=== PATIENT | female | born 1975 | race Hispanic/Latino ===

== ENCOUNTER 2017-10-05 10:33 | Inpatient (IN) | payer MEDICAID, OTHER, SELFPAY ==
[2017-10-05] MEDS ORDERED: Ibuprofen 200 MG TAB ONE (11:36)
[2017-10-05 12:03] LABS: Hemoglobin 14.1 g/dL (12.0-16.0); Mean Corpuscular Hemoglobin 30.9 pg (27.0-31.0); Mean Corpuscular Volume 90.7 fl (81.0-99.0); Platelet Count 232 thou/uL (130-400); RBC Distribution Width 11.9 % (11.5-14.5); Red Blood Cell (RBC) Count 4.57 mill/uL (4.20-5.40); White Blood Cell (WBC) Count 24.9 thou/uL (4.8-10.8)
[2017-10-05 12:13] LABS: Bilirubin Negative (Negative); Blood, Urine Large (Negative); Clarity CLOUDY (Clear); Glucose, Urine (Dipstick) Negative (Negative); Leukocyte Moderate (Negative); Nitrite Negative (Negative); Protein, Urine (Dipstick) 30 mg/dL (Neg-Trace); Specific Gravity, Urine 1.017 (1.002-1.036)
[2017-10-05 12:14] LABS: Bacteria/HPF 1+ HPF (None Seen); Hyaline Casts/LPF 4-6 HYALINE CAST LPF (0-3 Hyaline); Pathc Cast-AUWi Flag 0.81 (0-2.49); RBC/HPF GREATER THAN 50-TNTC HPF (0-3); WBC/HPF 21-50 HPF (0-3)
[2017-10-05 12:21] LABS: Band 19 % (5-11); Lymphocytes 4 % (21-51); MDiff Complete? YES; Monocytes 2 % (0-10); Neutrophil 75 % (42-75); RBC Morphology Normal
[2017-10-05 12:26] LABS: ALT (SGPT) 44 U/L (8-55); AST (SGOT) 38 U/L (5-34); Albumin 4.4 g/dL (3.5-5.0); Alkaline Phosphatase 73 U/L (40-150); Anion Gap 15 mmol/L (10-20); BUN (Urea Nitrogen) 11 mg/dL (7.0-18.7); Bilirubin, Total 1.4 mg/dL (0.2-1.2); Calc. Creatinine Clearance 0 mL/min (70-130); Calcium 9.4 mg/dL (7.8-10.44); Carbon Dioxide 20 mmol/L (22-29); Chloride 105 mmol/L (98-107); Estimated GFR-MDRD 79; Globulin 3.9 g/dL (2.4-3.5); Glucose 133 mg/dL (70-105); Lipase 13 U/L (8-78); Potassium 3.9 mmol/L (3.5-5.1); Protein, Total 8.3 g/dL (6.0-8.3); Sodium 136 mmol/L (136-145)
[2017-10-05 12:27] LABS: BHCG - Serum Negative (NEGATIVE); Pregs Control Background? CLEAR/WHITE (CLR/WHITE); Pregs Control Bar Appear? YES (CONTROL BAR)
[2017-10-05] MEDS ORDERED: Piperacillin/Tazobactam 4.5 GM in Sodium Chloride 0.9% 100 ML IVPB SCH (13:00)
--- NOTE | 2017-10-05 13:44 | CT ---
CT ABDOMEN AND PELVIS WITH IV CONTRAST: Date: 10-05-17 History: Abdominal pain since last night with associated nausea. Comparison: None available. FINDINGS: There is atelectasis present at each lung base. The liver, spleen, pancreas, bilateral adrenal glands, abdominal aorta and right kidney demonstrate a normal CT appearance. There is a nonobstructing 8 mm calculus in the inferior pole left kidney. The urinary bladder is incompletely distended and not well evaluated. The uterus and left adnexal str uctures have a normal CT appearance. There is a low density structure in the region of the right ovar y which may represent a right ovarian cyst. Small amount of free fluid is seen in the cul-de-sac. There are fluid filled loops of small bowel as well as fluid within the ascending colon. The appendix is visualized and is normal in diameter. No fluid collection or lymphadenopathy is seen in the abdom en or pelvis. Osseous structures appear intact. IMPRESSION: 1. Nonobstructing inferior pole left renal calculus. 2. Small amount of free fluid in the pelvis with associated adjacent linear densities which may also be related to fluid adjacent to the sigmoid colon as opposed to inflammatory changes. Small diverticu lum is present in the sigmoid colon at this level, but there is no bowel wall thickening seen. While early diverticulitis cannot be entirely excluded, these findings are thought to be related to small a mount of free fluid in the pelvis. 3. Low density structure within the right ovary probably related to ovarian cyst. 4. No CT evidence of appendicitis. 5. Nonspecific fluid filled loops of small bowel and ascending colon. No dilated loops of bowel are v isualized. POS: DAVID
[2017-10-05 16:04] LABS: Lactic Acid 1.8 mmol/L (0.5-2.2)
[2017-10-05] MEDS ORDERED: Ondansetron ODT 4 MG TAB SL PRN (16:38)
[2017-10-05] MEDS ORDERED: Ondansetron PF 4 MG/2 ML Vial IVP PRN ×2 (16:38→16:41)
[2017-10-05] MEDS ORDERED: Acetaminophen 325 MG TAB PO PRN (16:38)
[2017-10-05] MEDS ORDERED: Enoxaparin Sodium 40 MG/0.4 ML SYRINGE SC SCH (16:41)
[2017-10-05] MEDS ORDERED: HYDROcodone/Acetaminophen 5/325 mg Tablet PO PRN (16:41)
[2017-10-05] MEDS ORDERED: HYDROcodone/Acetaminophen 10/325 mg Tablet PO PRN (16:41)
[2017-10-05] MEDS ORDERED: Ondansetron ODT 4 MG TAB PO PRN (16:41)
[2017-10-05 17:00] VITALS: BMI 28.3
[2017-10-05] MEDS: Sodium Chloride 0.9% 1,000 ML IV SCH (17:38)
[2017-10-05] MEDS: metroNIDAZOLE 500 MG in Premix Bag 1 BAG IVPB SCH ×2 (17:41→23:56)
[2017-10-05] MEDS: Famotidine 20 MG TAB PO SCH (20:28)
[2017-10-06] MEDS ORDERED: Sodium Chloride 0.9% 1,000 ML IV SCH (00:15)
[2017-10-06] MEDS ORDERED: cefTRIAXone\\ROCEPHIN 2 GM in Sodium Chloride 0.9% 100 ML IVPB SCH (00:15)
[2017-10-06] MEDS: Acetaminophen 325 MG TAB PO PRN ×3 (00:19→23:03)
[2017-10-06] MEDS: Sodium Chloride 0.9% 1,000 ML IV SCH ×3 (03:05→17:14)
[2017-10-06 05:26] LABS: Anion Gap 7 mmol/L (10-20); BUN (Urea Nitrogen) 9 mg/dL (7.0-18.7); Calc. Creatinine Clearance 123 mL/min (70-130); Calcium 7.4 mg/dL (7.8-10.44); Carbon Dioxide 19 mmol/L (22-29); Chloride 114 mmol/L (98-107); Estimated GFR-MDRD Greater than 90; Glucose 104 mg/dL (70-105); Potassium 3.2 mmol/L (3.5-5.1); Sodium 137 mmol/L (136-145)
[2017-10-06] MEDS: metroNIDAZOLE 500 MG in Premix Bag 1 BAG IVPB SCH ×4 (05:41→23:04)
[2017-10-06 05:44] LABS: Band 28 % (5-11); Hemoglobin 10.1 g/dL (12.0-16.0); Lymphocytes 3 % (21-51); MDiff Complete? YES; Mean Corpuscular HGB CONC 33.1 g/dL (32.0-36.0); Mean Corpuscular Hemoglobin 30.9 pg (27.0-31.0); Mean Corpuscular Volume 93.1 fl (81.0-99.0); Mean Platelet Volume 7.6 fL (7.4-10.4); Metamyelocyte 1 % (0-0); Monocytes 2 % (0-10); Neutrophil 66 % (42-75); PLT Morphology Comment Appears Adequate; Platelet Count 170 thou/uL (130-400); RBC Distribution Width 11.9 % (11.5-14.5); RBC Morphology Normal; Red Blood Cell (RBC) Count 3.27 mill/uL (4.20-5.40); White Blood Cell (WBC) Count 16.7 thou/uL (4.8-10.8)
[2017-10-06] MEDS: Enoxaparin Sodium 40 MG/0.4 ML SYRINGE SC SCH (08:37)
[2017-10-06] MEDS: Famotidine 20 MG TAB PO SCH ×2 (08:37→20:22)
[2017-10-06] MEDS ORDERED: FLU VACC QS2017-18 36 mo. & older 0.5 ML SYRINGE IM ONE (09:00)
--- NOTE | 2017-10-06 14:29 | PDOC.PN ---
- Subjective Encounter Start Date: 10/06/17 Encounter Start Time: 15:00 pt feeling better, but still with occasional nasuea, maybe related to flagyl. HR still up, but ksenia,r BP stable, no nV at present, no D/C, no CP, no SOB, no further fevers WBC improved, but still abnormal. 10 point ROS performed and neg for all systems except as per hPI - Objective Resuscitation Status: Resuscitation Status FULL:Full Resuscitation MAR Reviewed: Yes Vital Signs & Weight: Vital Signs (12 hours) Temp Pulse Resp BP Pulse Ox 10/06/17 08:45 98.4 F 108 H 18 10/06/17 08:00 98.5 F 116 H 18 93/54 L 96 10/06/17 04:44 98.4 F 108 H 18 95/57 L 98 Weight Weight 145 lb 1.027 oz Result Diagrams: 10/07/17 08:39 10/07/17 08:39 Radiology Reviewed by me: Yes Phys Exam - Physical Examination Constitutional: NAD HEENT: PERRLA, moist MMs, sclera anicteric, oral pharynx no lesions Neck: no nodes, no JVD, supple, full ROM Respiratory: no wheezing, no rales, no rhonchi, clear to auscultation bilateral Cardiovascular: RRR, no significant murmur, no rub Gastrointestinal: soft, non-tender, no distention, positive bowel sounds Musculoskeletal: no edema, pulses present Neurological: non-focal, normal sensation, moves all 4 limbs Lymphatic: no nodes Psychiatric: normal affect, A&O x 3 Skin: no rash, normal turgor, cap refill <2 seconds Dx/Plan (1) Colitis Code(s): K52.9 - NONINFECTIVE GASTROENTERITIS AND COLITIS, UNSPECIFIED Status : Acute Comment: on cipro and flagyl, improved but not ready for discharg,e will continue current management tonight (2) Sepsis Code(s): A41.9 - SEPSIS, UNSPECIFIED ORGANISM Status: Acute Qualifiers: Sepsis type: sepsis due to unspecified organism Qualified Code(s): A41.9 - Sepsis, unspecified organism Comment: suspect GNR due to source being GI. BCx neg, UCx neg to date (3) UTI (urinary tract infection) Status: Acute Qualifiers: Urinary tract infection type: acute cystitis Hematuria presence: with hematuria Qualified Code(s): N30.01 - Acute cystitis with hematuria Comment: no urinary symptoms, follow up on culture, on Cipro (4) Renal stone Status: Chronic Comment: non-obstructing - Plan cont current plan of care, continue antibiotics, out of bed/ambulate, DVT proph w/lovenox * .
--- NOTE | 2017-10-06 17:13 | HP ---
DATE OF ADMISSION: 10/05/2017 TIME OF SERVICE: 1520. PRIMARY CARE PHYSICIAN: [facility] in [place]. CHIEF COMPLAINT: Abdominal pain, nausea. HISTORY OF PRESENT ILLNESS: Ms. Posadas is a 42-year-old Latin-[place] female with no past medical history, who developed abdominal pain about 24 hours prior to presentation. It is located in the bi lateral upper quadrants. It was associated with some nausea and vomiting x1, but none today. She de nies any fevers or chills, no chest pain or difficulty breathing. She denies any undercooked or abno rmal tasting foods. No sick contacts. She presented to the emergency department for evaluation wher e she was noted to have a white blood cell count of 24.9 with a left shift and 19% bands. Her lactic acid was normal, but her heart rate was 126 and was febrile at 102.9. She met sepsis criteria, so w kapil subsequently called for admit. Currently, she is feeling well. She was smiling upon my arrival to the room. She does complain of s ome abdominal pain that is constant. No cramping and currently no nausea or vomiting. PAST MEDICAL HISTORY: None. PAST SURGICAL HISTORY: None. HOME MEDICATIONS: None. ALLERGIES: None. FAMILY HISTORY: Negative for clotting or bleeding disorder, no immune dysfunction, no premature aaron nary artery disease. SOCIAL HISTORY: Negative for habits x3. She is . REVIEW OF SYSTEMS: A 10-point review of systems was attempted. The patient denied any other problem s, though I am unsure due to my inadequate Nepali. PHYSICAL EXAMINATION: VITAL SIGNS: Temperature 99.4, T-max in the ER is 102.9, pulse 126, blood pressure is 115/68, respir atory rate 25, satting 98% on room air. GENERAL: She is awake. She is alert and she is oriented x3, well-developed, well-nourished Latin-Am erican female, who appears to be in no acute distress. HEENT: Normocephalic, atraumatic. Pupils are equal, round, and react to light bilaterally. Mucous membranes are moist. She has no visible lesions. No thrush. NECK: Supple, without lymphadenopathy, JVD, or thyromegaly. She has normal carotid upstrokes withou t bruits. LUNGS: Clear. She has no wheezing, no rales or rhonchi. She has good air movement. Symmetrical ch est excursion. No prolonged expiratory phase. CARDIOVASCULAR: She is tachycardic, but regular. Normal S1, S2. I do not appreciate murmurs. ABDOMEN: Soft and it is diffusely tender in the bilateral upper quadrants. She has no rebound, rigi dity or guarding. She has got normoactive bowel sounds present in all four quadrants. EXTREMITIES: No cyanosis, no clubbing, no edema. SKIN: Warm, moist and well perfused. She has no rashes, no lesions. She has 2+ dorsalis pedis and posterior tibial pulses bilaterally. MUSCULOSKELETAL: Normal to inspection. Large joints appear uninflamed. There are no palpable effus ions and good range of motion. NEUROLOGIC: Cranial nerves II through XII are grossly intact. She has a normal speech pattern, she has a 5/5 strength in all four extremities. She has no focal deficits. LABORATORY DATA: Sodium is 136, potassium 3.9, chloride 105, bicarbonate 20, BUN 11, creatinine 0.80 , glucose 133, and calcium 9.4. Liver functions were normal. CBC showed a white count of 24.9, 75% granulocytes, 19% bands, hemoglobin is 14.1, hematocrit is 41.5 , and platelet count is 232,000. IMAGING: CT scan of the abdomen and pelvis showed left nonobstructing renal calculus and possible ea rly diverticulitis with some small amount of free fluid and some linear densities. ASSESSMENT AND PLAN: 1. Colitis: The patient certainly has clinical colitis. She has not had any diarrhea, but does hav e bilateral upper quadrant tenderness. I will place her on Cipro and Flagyl tonight and watch. Urin alysis did have 4 to 6 squamous epithelial cells, some white blood cells, but negative nitrite and mo derate leukocyte esterase. We will follow up on the urine culture. ER doctor reported tenderness to the bilateral flanks, though I was not able to elicit on my exam. I do not think she has pyelonephr itis. 2. Sepsis: The patient does meet sepsis criteria. She did get 30 mL per kilo, we will give another liter of IV fluids now and placed on 125 mL per hour overnight. Recheck her vitals in the morning. 3. Urinary tract infection, the patient has no symptoms of dysuria, hematuria or frequency. Urinaly sis is abnormal. She will be on antibiotics for her abdominal infection. I will follow up on the lture results.
[2017-10-07] MEDS: Sodium Chloride 0.9% 1,000 ML IV SCH (02:23)
[2017-10-07] MEDS: metroNIDAZOLE 500 MG in Premix Bag 1 BAG IVPB SCH (06:08)
[2017-10-07 08:58] LABS: #Basophils 0.1 thou/uL (0.0-0.2); #Eosinphils 0.1 thou/uL (0.0-0.7); #Lymphocytes 0.9 thou/uL (1.20-3.40); #Monocytes 0.5 thou/uL (0.11-0.59); #Neutrophils 7.7 thou/uL (1.40-6.50); %Basophils 0.6 % (0.0-1.0); %Eosinophils 0.8 % (0.0-10.0); %Lymphocytes 9.5 % (21.0-51.0); %Monocytes 5.4 % (0.0-10.0); %Neutrophils 83.7 % (42.0-75.0); Hemoglobin 10.1 g/dL (12.0-16.0); Mean Corpuscular HGB CONC 33.4 g/dL (32.0-36.0); Mean Corpuscular Hemoglobin 30.3 pg (27.0-31.0); Mean Corpuscular Volume 90.7 fl (81.0-99.0); Platelet Count 180 thou/uL (130-400); RBC Distribution Width 11.8 % (11.5-14.5); Red Blood Cell (RBC) Count 3.33 mill/uL (4.20-5.40); White Blood Cell (WBC) Count 9.2 thou/uL (4.8-10.8)
[2017-10-07] MEDS: Enoxaparin Sodium 40 MG/0.4 ML SYRINGE SC SCH (09:02)
[2017-10-07] MEDS: Famotidine 20 MG TAB PO SCH (09:04)
[2017-10-07 09:34] LABS: ALT (SGPT) 23 U/L (8-55); AST (SGOT) 18 U/L (5-34); Albumin 3.1 g/dL (3.5-5.0); Alkaline Phosphatase 56 U/L (40-150); Anion Gap 9 mmol/L (10-20); BUN (Urea Nitrogen) 6 mg/dL (7.0-18.7); Bilirubin, Total 0.3 mg/dL (0.2-1.2); Calc. Creatinine Clearance 125 mL/min (70-130); Calcium 8.3 mg/dL (7.8-10.44); Carbon Dioxide 19 mmol/L (22-29); Chloride 116 mmol/L (98-107); Estimated GFR-MDRD Greater than 90; Globulin 2.7 g/dL (2.4-3.5); Glucose 100 mg/dL (70-105); Magnesium 1.8 mg/dL (1.6-2.6); Potassium 2.8 mmol/L (3.5-5.1); Protein, Total 5.8 g/dL (6.0-8.3); Sodium 141 mmol/L (136-145)
[2017-10-07] MEDS: Potassium Chloride 20 MEQ TAB PO SCH ×2 (11:35→14:58)
[2017-10-07] MEDS: Acetaminophen 325 MG TAB PO PRN (14:58)
[2017-10-07] MEDS ORDERED: metroNIDAZOLE 500 MG TAB PO SCH (15:00)
[2017-10-07] MEDS ORDERED: Ciprofloxacin 500 MG TAB PO SCH (15:00)
[2017-10-07 16:09] VITALS: BP 116/74; TEMP 98.9
[2017-10-08] MEDS ORDERED: Ciprofloxacin 500 MG TAB PO SCH ×2 (06:00→20:00)
--- NOTE | 2017-10-08 13:56 | DIS ---
DATE OF ADMISSION: 10/05/2017 DATE OF DISCHARGE: 10/07/2017 PRIMARY CARE PHYSICIAN: [facility]. DISCHARGE DIAGNOSES: Abdominal pain and nausea. HISTORY OF PRESENT ILLNESS: Ms. Posadas is a 42-year-old Latin-Australian female with no past medical history, who came with about 24 hours of abdominal pain prior to admission. She was seen and evaluated in the emergency department with a negative urinalysis and met sepsis criteria. She was given IV fluids. We were called for admission. HOSPITAL COURSE: The patient was seen and examined by me in the emergency department. Clinically, she had a colitis, was started on Cipro and Flagyl, and was watched overnight. She had no other signs of pyelonephritis. Overnight, 10/05/2017-10/06/2017, the patient was feeling better with occasional nausea that seemed to be temporally related to the Flagyl. Her heart rate was still up, but blood pressure was better. She had no nausea and vomiting and no further fevers. White blood cell count was improved, down in the not quite normal. She was continued on antibiotics overnight. On the day of discharge, white blood cell count normalized. Nausea and vomiting, resolved. Abdominal pain had all but resolved, and she is stable for outpatient followup. PHYSICAL EXAMINATION: The patient was seen and examined on the day of discharge. Discharge plan and disposition were discussed with the patient [id number] at the bedside. DISCHARGE MEDICATIONS: 1. Cipro 500 mg p.o. b.i.d. for 10 more days. 2. Flagyl 500 mg p.o. t.i.d. for 10 more days. 3. Zofran ODT 4 mg every 6 hours as needed. DISCHARGE CONDITION: Stable. DISPOSITION: Being discharged home via private vehicle. FOLLOWUP APPOINTMENTS: Primary care physician within a week. DISCHARGE ACTIVITY: As tolerated. DISCHARGE DIET: Regular. DISCHARGE DIAGNOSIS: Acute infectious colitis. BAILEY
--- NOTE | 2017-10-09 13:02 | EKG ---
Test Reason : ABD PAIN Blood Pressure : / mmHG Vent. Rate : 132 BPM Atrial Rate : 132 BPM P-R Int : 140 ms QRS Dur : 088 ms QT Int : 310 ms P-R-T Axes : 050 079 012 degrees QTc Int : 459 ms Sinus tachycardia Otherwise normal ECG Confirmed by ROBIN Sagastume, LULU ([id number]), editorial intern ANITA CURRY ([id number]) on 10/09/2017 1:02:10 PM Referred By: Confirmed By:LULU KELLY M.D.
== END 2017-10-07 16:23 | disposition home or self-care (01) | DRG 872 ==
LOC: ERS 10:33 → T4-A 15:45
PROVIDERS: ADMIT Internal Medicine Infectious Disease; ATTEND Internal Medicine Infectious Disease
DX: A41.9 Sepsis, unspecified organism (principal); N30.01 Acute cystitis with hematuria; K52.9 Noninfective gastroenteritis and colitis, unspecified; N20.0 Calculus of kidney
CPT/HCPCS: 36415; 74177; 80048; 80053; 81003; 81015; 83605; 83690; 83735; 84703; 85025; 87040; 87086; 93005; 96361; 96365; 96375; J0696; J0744; J1650; J2405; J2543; J7050

== ENCOUNTER 2023-05-28 07:16 | Outpatient (CLI) | payer OTHER | END 2023-05-28 07:17 | disposition home or self-care (01) | LOC: BICULT 07:16 | PROVIDERS: ATTEND Nurse Practitioner Family | DX: R10.84 Generalized abdominal pain (principal); K76.0 Fatty (change of) liver, not elsewhere classified; K82.4 Cholesterolosis of gallbladder | CPT/HCPCS: 76700 ==